=== PATIENT | female | born 1970 | race Caucasian/White ===

== ENCOUNTER → 2019-01-30 | Outpatient (CLI) | payer OTHER ==
--- NOTE | 2019-01-30 10:27 | KCIC ---
BILATERAL SCREENING MAMMOGRAM History: Routine screening. Comparison: Bilateral mammogram March 24, 2012. The right MLO is not available for comparison. Technique: Routine bilateral digital mammogram views were obtained. Findings: Breast Tissue Density B : There are scattered areas of fibroglandular density. There are 2 areas of nodularity in the right breast, not definitely present on prior study. One is at the central 6:00 B position, the other at the 7:00 C position. There are no dominant masses, suspicious microcalcifications, or architectural distortion. IMPRESSION: 2 areas of nodularity of the right breast. Recommend further evaluation with right breast ultrasound. BI-RADS Category 0: Incomplete: Need additional imaging evaluation. The images were reviewed with computer aided detection. Patient information is entered into the reminder system with a target due date for the next screening mammogram. Mammography is the most sensitive method for finding small breast cancers, but it does not detect them all and is not a substitute for careful clinical examination. A negative mammogram does not negate a clinically suspicious finding and should not result in delay in biopsying a clinically suspicious abnormality. "Our facility is accredited by the [employer] Mammography Program." Electronically signed by: Manjinder Lainez MD (01/30/2019 10:24 AM) [email or web address]
== END | disposition home or self-care (01) ==
LOC: KCIC MAMMO 08:14
PROVIDERS: ATTEND Obstetrics & Gynecology
DX: Z12.31 Encounter for screening mammogram for malignant neoplasm of breast (principal); N63.13 Unspecified lump in the right breast, lower outer quadrant
CPT/HCPCS: 77067

== ENCOUNTER → 2019-02-05 | Outpatient (CLI) | payer OTHER ==
--- NOTE | 2019-02-05 14:15 | KCIC ---
Right breast ultrasound: Reason for examination: Nodular densities on screening mammogram. Comparison is made to mammographic exam dated 01/30/2019. Right whole breast ultrasound including evaluation of all 4 quadrants and the retroareolar and axillary regions of the right breast was performed. In the 6:30 position 4 cm from the nipple, there is a hypoechoic circumscribed lesion consistent with a cyst with some posterior acoustic enhancement measuring 7.3 x 5.9 mm in size. In the 7:00 position 5 cm from the nipple, there is a 6.1 x 7.8 mm hypoechoic fibrocystic type lesion present. In the 8:00 position 4 cm from the nipple, there is a 6.6 x 7.2 mm fibrocystic lesion. No solid suspicious-appearing nodules are seen. No abnormal appearing lymph nodes are seen in the axilla. IMPRESSION: Benign subcentimeter hypoechoic fibrocystic type lesions seen at the 6:30, 7:00 and 8:00 positions. No suspicious lesions are seen. Recommend reevaluation with ultrasound in 6 months. BI-RADS Category 3: Probably Benign. "Our facility is accredited by the [employer] Mammography Program." This patient's information has been entered into a reminder system for the patient to be notified with the results of her examination and a target date for the next mammogram. Electronically signed by: Chaisdy Helm MD (02/05/2019 2:12 PM) [id number]
== END | disposition home or self-care (01) ==
LOC: KCIC US 12:44
PROVIDERS: ATTEND Obstetrics & Gynecology
DX: N64.89 Other specified disorders of breast (principal)
CPT/HCPCS: 76641

== ENCOUNTER → 2019-09-28 | Outpatient (CLI) | payer OTHER ==
--- NOTE | 2019-09-28 10:35 | KCIC ---
EXAM: Right breast sonogram. HISTORY: 48-year-old female presents for follow-up evaluation of suspected benign fibrocystic lesions within the right breast demonstrated on a prior sonogram dated 02/05/2019. TECHNIQUE: Sonographic imaging of the right breast targeted to sites of prior concern was performed. COMPARISON: 02/05/2019. FINDINGS: The previously demonstrated lesion at the 7:00 position 5 cm from nipple is no longer seen. There has been slight interval decrease in a circumscribed hypoechoic lesion with internal echoes at the 6:30 position 4 cm from the nipple measuring 6 maximum dimension, previously measuring 7.3 mm in maximum dimension. There is a similar-appearing circumscribed hypoechoic lesion with internal echoes at the 8:00 position 4 cm from the nipple measuring 8.7 mm, previously measuring 7.2 mm. No new lesion is seen. IMPRESSION: 1. Slight interval decreased size of benign-appearing subcentimeter suspected complex cystic or fibrocystic lesion within the 6:30 o'clock positions of the right breast. The previously demonstrated lesion at the 7:00 position is no longer seen. 2. No new suspicious sonographic finding. 3. BI-RADS Category 2: Benign finding(s). The patient will be due for bilateral mammography in 4 months according to a previously established mammography interval. Electronically signed by: Suzanne Shahid MD (09/28/2019 10:33 AM) [email or web address]
== END | disposition home or self-care (01) ==
LOC: KCIC US 09:58
PROVIDERS: ATTEND Nurse Practitioner Family
DX: N64.89 Other specified disorders of breast (principal)
CPT/HCPCS: 76641